=== PATIENT | male | born 1945 | race Caucasian/White ===

== ENCOUNTER 2016-04-08 12:32 | Observation (INO) | payer OTHER ==
[2016-04-08] VITALS (8 sets, daily range): BP systolic 130–167; BP diastolic 71–95; PULSE 66–78; RESP 10–20; O2SAT 97–100
[~2016-04-08] VITALS: Ht 182.9 cm; Wt 77.6 kg
[2016-04-08] MEDS ORDERED: 0.9% Sodium Chloride 1,000 ML IV ONE (12:58)
--- NOTE | 2016-04-08 12:58 | ED.REPORT ---
HPI-GI Bleed Date of Service Apr 08, 2016 ED Provider: Daniel Perry MD 70 year old male with HTN presents to the ER accompanied by his complaining of vomiting "coffee grounds" yesterday around 20:00. He reports only one episode of projectile vomiting, and one episode of black diarrhea this morning. Associated symptoms include abdominal discomfort, and dizziness/ lightheadedness last night, now resolved. Patient denies fever, chills, and history of gastric ulcer or GI bleeding. He admits that he had three beers last night. Nursing Notes Stated Complaint: BLOOD IN STOOL AND VOMIT Chief Complaint: Male Abdominal Pain Nursing Notes Reviewed: Yes Allergies: Coded Allergies: No Known Allergies (Unverified , 04/08/16) General Time Seen by Provider: 12:56 Chief Complaint Chief Complaint: Stool tarry black, Vomiting coffee grounds Hx Obtained From: Patient Arrived By: Walk-in Onset Occurred: Yesterday Symptom Duration: Intermittent Associated with: Reports: Diarrhea, Denies: Fever Pertinent Negative: Pt denies other symptoms Past Medical History Past Medical History Reports: Hypertension Past Surgical History Reports: Knee replacement (bilateral) Smoking History Unknown if Ever Smoker Social History Other Social History: Good social support, Lives alone Ambulatory Status Independent Review of Systems Constitutional: Denies: Chills, Fever Respiratory: Denies: Shortness of breath Cardiovascular: Denies: Chest pain GI: Reports: Abdominal pain, Bloody/tarry stool, Diarrhea, Hematemesis (Coffee grounds), Melena, Nausea, Vomiting, Denies: Constipation Complete sys rev & neg: except as marked. Male: Denies Dysuria, Denies Flank pain, Denies Hematuria Physical Exam Initial Vital Signs Vital Signs (First) Date Time Temp Pulse Resp B/P Pulse Ox O2 Delivery O2 Flow Rate FiO2 04/08/16 12:36 36.3 75 10 167/95 100 Room Air Initial VS: Reviewed Head / Eyes: Atraumatic, Normocephalic Neck: Supple, Non-tender, Full range of motion Extremities: Vascular intact, Neuro intact, No swelling, No tenderness Skin: Warm, Dry, No cyanosis Neurologic: Alert, Oriented, Nonfocal Psychiatric: Mood/affect normal, Behavior normal, Normal thought content General/Constitutional: Awake, Alert, No acute distress, Well developed, Well nourished Respiratory / Chest: Breath sounds NL, Breath sounds = bilat, No respiratory distress, No rales, No rhonchi, No wheezing Cardiovascular: Heart rate NL, Regular rhythm, Heart sounds NL, No murmurs, Cap refill not delayed, Peripheral circulation NL Abdomen: Soft, No guarding, No rebound, No distention Tenderness/Guarding/Rebound: Positive: Tender epigastric Rectal for Blood: Positive: Blood - occult heme +, Melena present Rectum / Perineum Abnl: Positive: Hemorrhoid external Interpretation & Diagnostics Lab Results Interpretation Result Diagram: 04/08/16 1319 04/08/16 1319 Test 04/08/16 13:19 White Blood Count 9.2th/mm3 (3.8-10.1) Red Blood Count 4.33mil/mm3 (4.40-5.80) Hemoglobin 13.2g/dL (13.8-17.2) Hematocrit 40.3% (41.0-50.0) Mean Corpuscular Volume 93.1fL (81-100) Mean Corpuscular Hemoglobin 30.5pg (27.0-35.0) Mean Corpuscular Hemoglobin Concent 32.8% (32.0-37.0) Red Cell Distribution Width 12.7% (12.3-15.4) Platelet Count 329bil/L (150-400) Neutrophils (%) (Auto) 74.9% (40-74) Lymphocytes (%) (Auto) 13.9% (14-46) Monocytes (%) (Auto) 10.1% (4-12) Eosinophils (%) (Auto) 0.4% (0-5) Basophils (%) (Auto) 0.5% (0-3) Prothrombin Time 11.2sec (8.1-12.5) Prothromb Time International Ratio 1.05ratio Sodium Level 139mEq/L (134-144) Potassium Level 4.0mEq/L (3.5-5.2) Chloride Level 101mEq/L (97-108) Carbon Dioxide Level 24mmol/L (18-29) Blood Urea Nitrogen 30mg/dL (8-27) Creatinine 0.83mg/dL (0.76-1.27) Estimat Glomerular Filtration Rate 98mL/min (>59) Glucose Level 94mg/dL (60-99) Calcium Level 8.6mg/dL (8.5-10.1) Total Bilirubin 0.5mg/dL (0.0-1.2) Aspartate Amino Transf (AST/SGOT) 18U/L (0-50) Alanine Aminotransferase (ALT/SGPT) 11U/L (0-44) Alkaline Phosphatase 75U/L (25-160) Total Protein 6.4g/dL (6.4-8.4) Albumin 4.1g/dL (3.4-5.0) Re-Eval/Medical Decision Med Decision/Clinical Course The patient is a 70-year-old male with a history of heavy drinking who presents emergency Department with 1 episode of coffee-ground emesis as well as melanotic stools for the last 24 hours. Upon arrival he is afebrile and hemodynamically stable. Abdominal examination reveals epigastric tenderness without any peritoneal findings, guarding or rigidity. Rectal examination reveals melena. 2 large-bore IVs were obtained and the patient was started on a pantoprazole bolus and infusion. Presentation was discussed with Dr. Roman who will consult on this patient and perform endoscopy in the morning. He remained hemodynamically stable. CBC revealed a hematocrit of 40 and CMP was notable for BUN of 30, otherwise unremarkable. At this time there are no findings consistent with an acute surgical intra-abdominal process and I do not feel that abdominal imaging is immediately indicated. He admits he has been taking aspirin for the last couple of days so otherwise does not take any nonsteroidal anti-inflammatory medications. He has no history of GI bleeding, esophageal varices or gastric ulcers. I suspect that his GI bleed is upper in nature and likely related to gastritis or peptic ulcer disease. Patient was admitted to the critical care unit due to the acute nature of his bleeding and large volume of bloody emesis. Patient was transferred in stable condition with good IV access and GI consulting. Source of Hx: Old records Re-Evaluation/Progress : Time of Eval: 13:06 Re-Evaluation/Progress Note: Discussed physical examination findings and need for admission. Patient is amenable to the plan. All other questions addressed. Consultation #1: Referral / Consult Name: Vern Quintana MD Consulted With: On-call physician (GI) Call Returned at: 13:29 Area Plant Manager: Will see patient Note: Discussed patient case with Dr. Quintana GI. Will scope patient in the morning. Consultation #2: Consulted With: Hospitalist Area Plant Manager: Agrees with eval, Agrees with plan, Accepts admit Counseled Regarding: Diagnosis, Lab results, Need for admission Discharge & Departure Impression: Primary Impression: Upper GI bleed Additional Impressions: Hematemesis Nausea presence: unspecified Qualified Code: K92.0 - Hematemesis Melena Alcohol abuse Disposition: ADMITTED TO HOSPITAL Discharge Condition All VS Reviewed: Yes Condition: Stable Crit Care Except Billable Proc Time Spent: 105-134 minutes Services Performed: Patient management by me, Time spent at bedside, Reviewing test results, Reviewing imaging, Discussing patient care, Documentation in record, Time with fam/surrogate Scribe Attestation Portions of this note were transcribed by Antolin Christensen. I, Dr. Perry, personally performed the history, physical exam and medical decision-making; I reviewed and confirmed the accuracy of the information in the transcribed note. Signed by: Elham Rosas, 04/08/2016 and 14:19 Daniel Perry MD Apr 08, 2016 12:58 ANTOLIN CHRISTENSEN Apr 08, 2016 13:09
[2016-04-08] MEDS ORDERED: Pantoprazole 4 mg/mL 10 mL Inj IVPUSH ONE (13:00)
[2016-04-08] MEDS ORDERED: Ondansetron 2 mg/mL 2 mL Inj IVPUSH PRN ×2 (13:15→14:40)
[2016-04-08] MEDS ORDERED: Alum-Mag Hydrox-Simeth 30 mL Suspension PO PRN ×2 (13:15→14:40)
[2016-04-08] MEDS ORDERED: Pantoprazole Inj 80 MG, Pharmacy To Mix 1 EA in 0.9% Sodium Chloride 80 ML IV ONE ×2 (13:15)
[2016-04-08 13:27] LABS: BASOPHILS % (AUTO) 0.5 % (0-3); EOSINOPHILS % (AUTO) 0.4 % (0-5); MONOCYTES % (AUTO) 10.1 % (4-12); Mean Corpuscular Hemoglobin 30.5 pg (27.0-35.0); Mean Corpuscular Volume 93.1 fL (81-100); NEUTROPHILS % (AUTO) 74.9 % (40-74); Platelet Count 329 bil/L (150-400)
[2016-04-08 13:46] LABS: INR 1.05 ratio
[2016-04-08] MEDS ORDERED: fentaNYL-PF 50 mCg/mL 2 mL Inj IV PRN (14:40)
--- NOTE | 2016-04-08 14:51 | PCM.HPMED ---
Subjective Date of Service Apr 08, 2016 Primary Provider: Admitting Physician: Primary Care Physician: [facility] Attending Physician: Admit Status: From the Emergency Department, Full Admit, [facility] Telemetry Chief Complaint: Vomiting black material along with black diarrhea today History of Present Illness: This is a 70-year-old male whose past medical history is significant for hypertension however he has not been taking his blood pressure pills over the past several months and says he checks his blood pressures and it is not elevated. He does note over the past 3 days he has taken one aspirin daily. He had a mild headache. He does drink alcohol about 3-4 beers every 3-4 days. Patient does note that his appetite had been a little bit poor over the past few days. He does currently note some mild epigastric discomfort. He notes no prior history of GI bleeding. He has felt a little bit lightheaded particularly after the episode of vomiting which occurred once. He also had 1 loose stool today. Both were black in color. He denies any chest pain or shortness of breath. His evaluation in the emergency room includes an admission hematocrit at 40.3. He does have normal liver enzymes. Dr. Quintana was notified by JANINE Pearson and plan suspect the patient tomorrow. Patient was given Protonix was IV and started on IV Protonix drip 8 mg per hour in the emergency room. Review of Systems: All other review of systems are reviewed and are negative except for as in history of present illness Allergies Coded Allergies: No Known Allergies (Unverified , 04/08/16) Home Medications None currently per patient Patient previously had been on lisinopril and hydrochlorothiazide for his hypertension. [facility] Past Medical History Reports: Hypertension Past Surgical History Reports: Knee replacement (bilateral) His knee replacements one was done in January 2015 and the next one was done May 2015 at [facility]. Family History Patient denies any family medical history of cancer or coronary artery disease Social History Hx Alcohol Use: Yes (3-4 beers every 3-4 days) Hx Substance Use: No Hx Tobacco Use: No Smoking Status: Former Smoker (quit 20 years ago), Unknown if Ever Smoker Living Arrangement: with Family Exam Vital Signs Vital Sign - Last Date Time Temp Pulse Resp B/P Pulse Ox O2 Delivery O2 Flow Rate FiO2 04/08/16 12:36 36.3 75 10 167/95 100 Room Air Exam Constitutional: Elderly man in no acute distress Head: Normocephalic atraumatic Eyes: PERRLA DC EOMI Neck: No lesions Mouth: Poor dentition Chest: Clear to auscultation Cor: Regular rate and rhythm S1-S2 Abdomen: Soft there is some tenderness in the epigastrium no rebound no guarding bowel sounds are present extremities: No pedal edema Skin: No rashes Psych: Mood and affect are appropriate Neuro: Alert and oriented 3, motor and sensory are intact bilaterally Lab and Diagnostics Labs Laboratory Tests 72 Hours Test 04/08/16 13:19 White Blood Count 9.2th/mm3 (3.8-10.1) Red Blood Count 4.33mil/mm3 (4.40-5.80) Hemoglobin 13.2g/dL (13.8-17.2) Hematocrit 40.3% (41.0-50.0) Mean Corpuscular Volume 93.1fL (81-100) Mean Corpuscular Hemoglobin 30.5pg (27.0-35.0) Mean Corpuscular Hemoglobin Concent 32.8% (32.0-37.0) Red Cell Distribution Width 12.7% (12.3-15.4) Platelet Count 329bil/L (150-400) Neutrophils (%) (Auto) 74.9% (40-74) Lymphocytes (%) (Auto) 13.9% (14-46) Monocytes (%) (Auto) 10.1% (4-12) Eosinophils (%) (Auto) 0.4% (0-5) Basophils (%) (Auto) 0.5% (0-3) Prothrombin Time 11.2sec (8.1-12.5) Prothromb Time International Ratio 1.05ratio Sodium Level 139mEq/L (134-144) Potassium Level 4.0mEq/L (3.5-5.2) Chloride Level 101mEq/L (97-108) Carbon Dioxide Level 24mmol/L (18-29) Blood Urea Nitrogen 30mg/dL (8-27) Creatinine 0.83mg/dL (0.76-1.27) Estimat Glomerular Filtration Rate 98mL/min (>59) Glucose Level 94mg/dL (60-99) Calcium Level 8.6mg/dL (8.5-10.1) Total Bilirubin 0.5mg/dL (0.0-1.2) Aspartate Amino Transf (AST/SGOT) 18U/L (0-50) Alanine Aminotransferase (ALT/SGPT) 11U/L (0-44) Alkaline Phosphatase 75U/L (25-160) Total Protein 6.4g/dL (6.4-8.4) Albumin 4.1g/dL (3.4-5.0) Result Diagram: 04/08/16 1319 04/08/16 1319 12-lead ECG Pending at the time of this dictation Assessment & Plan # Upper GI bleed, acute, present on admission Due to amount of melena and first hematocrit looked okay we will go ahead and place an PCC telemetry check serial hematocrits Type and cross PRBCs Continue with IV Protonix drip Nothing by mouth GI to see tomorrow for EGD 2 large bore IVs Check EKG and troponins to rule out any cardiac ischemia # History of hypertension, chronic, present on admission Patient is off of his antihypertensive I think by his own volition over the past few months We will need to monitor blood pressure here # History of EtOH use, chronic, present on admission Monitor for signs and symptoms of alcohol withdrawal # DVT prophylaxis We will not use subcutaneous anticoagulation due to GI bleed but will place on SCDs # CODE STATUS Full code Time spent 60 minutes Renée Dunn MD Apr 08, 2016 14:51
[2016-04-08] MEDS ORDERED: SODIUM CHLORIDE 0.9% IV SCH (15:00)
[2016-04-08] MEDS ORDERED: PANTOPRAZOLE IV SCH (15:00)
--- NOTE | 2016-04-08 15:30 | NUR ---
To [facility] rm 2023 from E.R. Admission completed/pt reports he takes "no medications". A&Ox3, no evidence of upper or lower bleed or emesis or melena.
--- NOTE | 2016-04-08 18:00 | NUR ---
Postural BPs Lying flat: 158/80, HR 76. Standin/86, HR 78. Denies lightheadedness or dizziness.
--- NOTE | 2016-04-08 19:00 | NUR ---
Stable; next H/H pending/avail PRBC x1 unit/ No signs/sx of emesis or rectal bleeding. Up in room, steady on feet.
[2016-04-08] MEDS: 0.9% Sodium Chloride 1,000 ML IV SCH ×2 (19:18→22:40)
[2016-04-08] MEDS: Pantoprazole 8 mg/Hr Infusion IV SCH ×2 (19:19)
[2016-04-08 19:54] LABS: APPEARANCE,URINE CLEAR (CLEAR,HAZY); COLOR,URINE YELLOW (YELLOW); OCCULT BLOOD,URINE TRACE (NEGATIVE); PH,URINE 5.5 (5.0-8.0); UROBILINOGEN,URINE NORMAL (NORMAL)
[2016-04-09] VITALS (9 sets, daily range): BP systolic 113–167; BP diastolic 60–87; PULSE 59–70; RESP 16–20; O2SAT 95–99
[2016-04-09] MEDS: Pantoprazole 8 mg/Hr Infusion IV SCH ×4 (00:37→11:01)
[2016-04-09 02:36] LABS: EOSINOPHILS % (AUTO) 1.7 % (0-5); MONOCYTES % (AUTO) 12.3 % (4-12); Mean Corpuscular Hemoglobin 30.6 pg (27.0-35.0); Mean Corpuscular Volume 94.3 fL (81-100); NEUTROPHILS % (AUTO) 53.4 % (40-74); Platelet Count 257 bil/L (150-400)
[2016-04-09] MEDS: 0.9% Sodium Chloride 1,000 ML IV SCH (03:37)
--- NOTE | 2016-04-09 11:36 | NUR ---
Spoke with Anais at [facility] in [place], patient is 60% service connected PNT. Patient holds no other insurance and there are no beds available today. Updated ROTOR BALANCER
[2016-04-09] MEDS ORDERED: Lactated Ringer's 1,000 ML IV ONE (14:31)
[2016-04-09] MEDS ORDERED: Lactated Ringer's 1,000 ML IV SCH (14:31)
[2016-04-09] MEDS ORDERED: MetoCLOpramide 5 mg/mL 2 mL Inj IVPUSH PRN (14:35)
[2016-04-09] MEDS ORDERED: Ondansetron 2 mg/mL 2 mL Inj IVPUSH PRN (14:35)
--- NOTE | 2016-04-09 14:53 | NUR ---
Off Unit Patient off unit to Endoscopy for procedure.
--- NOTE | 2016-04-09 15:04 | PCM.HPANE ---
Patient Data Date of Service: Apr 09, 2016 Surgeon Admitting Provider:Renée Dunn MD Attending Provider:Renée Dunn MD [facility] Other Provider: Reason for Visit Upper Gi Ht/WT & BMI Height (Feet): 6 Height (Inches): 0.00 Weight (Kilograms): 77.600 Body Mass Index 0.00 Allergies Coded Allergies: No Known Allergies (Unverified , 04/08/16) Diabetes History Hx Diabetes?: No MRSA MRSA: No Medications Home Meds Incl Beta Diana: No History History of ENT Problems?: No HEENT History: Denies:: Dysphagia Hx of Heart Problems?: Yes Cardiovascular History: Positive for:: Heart Murmur Denies:: Cardiac Surgery Chest Pain Congestive Heart Failure Edema Hypertension Irregular Heartbeat Pacemaker Thrombophlebitis Hx of Respiratory Problem?: No Respiratory History: Denies:: Tuberculosis Neurological History: Positive for:: Headaches (just last few days) Hx of GI Problems?: No Gastrointestinal History: Positive for:: Gastrointestinal Bleeding (this admit is first GI problem) Genitourinary History: Denies:: Kidney Stones Musculoskeletal History: Positive for:: Joint Replacement (Bilateral knee replacements) Denies:: Back Injury Hx of Psycho/Social Problems?: No Psycho Social History: Denies:: Anxiety Bipolar Disorder Hx Depression Suicide Attempt Hx Surgeries?: No Other History: Positive for:: Hospitalization (Just for knee surgeries) Denies:: Thyroid Disease History Blood Transfusions: Positive for:: Accept Blood Products? Blood Transfusions Denies:: Blood Transfuse Reaction Hx Diabetes: No Hx Alcohol Use: Yes (3-4 beers every 3-4 days)Alcoholic Drinks Per Day: 0-3Hx Substance Use: No Smoking Status: Former Smoker (quit 20 years ago) Unknown if Ever Smoker Have You Smoked inLast 12 mo: No Stop/Bang Treated for Sleep Apnea?: No Do You Have a CPAP Machine?: No S-Snoring: Do You Snore Loudly: No T-Tired: feel tired, fatigued: No O-Obsered: Observed not breath: No P-Blood Pressure: treated: No B- Body Mass Index > 35 kg/m2: No A- Age over 50: Yes N- Neck Large Circumference: No G- Gender Male: Yes NAFISA Total Score: 1 NAFISA Risk Assessment: Low Risk, <3 Yes Risk Assessment Category Category 1A: Patient has history of documented sleep apnea, and HAS NOT received any narcotic, sedative or anesthesia administration during this stay. Category 1B: Patient has history of documented sleep apnea, and HAS received any narcotic , sedative or anesthesia administration during this stay Category 2: Patient has SUSPECTED Obstructive Sleep Apnea, and HAS received any narcotic , sedative or anesthesia administration during this stay. Category 3: Patient has SUSPECTED Obstructive Sleep Apnea and HAS NOT received narcotic, sedative or anesthesia administration during this stay. Category 4: Outpatient in Procedural Areas with known sleep apnea or who screen positive for High Risk via the STOP/BANG questionnaire. Exam Exam Vital Signs Vital Signs Date Time Temp Pulse Resp B/P Pulse Ox O2 Delivery O2 Flow Rate FiO2 04/09/16 13:08 67 04/09/16 11:59 36.7 70 16 149/87 98 Room Air 04/09/16 08:31 36.7 68 16 167/85 99 Room Air General Appearance: Alert, Oriented X3, Cooperative, No Acute Distress HEENT/AIRWAY: MP 1 Lungs: Normal Air Movement Heart: Exam Unremarkable Meds/Labs/Diagnostics Admission Meds Current Medications Sodium Chloride 1,000 ml @ 125 mls/hr Q8H IV Last administered on 04/09/16 03 :37; Start 04/08/16 at 14:40 Pantoprazole/ Sodium Chloride (Protonix Inj/ Normal Saline) 100 ml @ 10 mls/hr Q10H IV Last administered on 04/09/16 11:01; Start 04/08/16 at 15:15 Labs Test 04/08/16 13:19 04/08/16 18:45 04/09/16 02:07 Prothrombin Time 11.2sec (8.1-12.5) Prothromb Time International Ratio 1.05ratio Urine Color Yellow (YELLOW) Urine Appearance Clear (CLEAR,HAZY) Urine pH 5.5 (5.0-8.0) Urine Specific [place] 1.030 (1.003-1.035) Urine Protein Negativemg/dL (NEG,TRACE) Urine Glucose (UA) Negativemg/dL (NEGATIVE) Urine Ketones 15mg/dL (NEGATIVE) Urine Occult Blood Trace (NEGATIVE) Urine Nitrite Negative (NEGATIVE) Urine Bilirubin Negative (NEGATIVE) Urine Urobilinogen Normalmg/dL (NORMAL) Urine Leukocyte Esterase Negative (NEGATIVE) Urine RBC 0-2/hpf (0-2) Urine WBC 0-5/hpf (0-5) Urine Epithelial Cells None/hpf (NONE-MOD) Urine Crystals None seen (NONE SEEN) Urine Bacteria None/hpf (NONE-FEW) Urine Hyaline Casts None/lpf (NONE) Urine Granular Casts None seen (NONE SEEN) Urine Waxy Casts None seen (NONE SEEN) Urine Red Blood Cell Casts None seen (NONE SEEN) Urine White Blood Cell Casts None seen (NONE SEEN) Urine Mucus None seen (None Seen) Urine Trichomonas None seen (NONE SEEN) Urine Yeast None (NONE SEEN) Urinalysis Comment None Urine Culture Reflexed Not indicated White Blood Count 5.9th/mm3 (3.8-10.1) Red Blood Count 3.50mil/mm3 (4.40-5.80) Hemoglobin 10.7g/dL (13.8-17.2) Hematocrit 33.0% (41.0-50.0) Mean Corpuscular Volume 94.3fL (81-100) Mean Corpuscular Hemoglobin 30.6pg (27.0-35.0) Mean Corpuscular Hemoglobin Concent 32.4% (32.0-37.0) Red Cell Distribution Width 12.6% (12.3-15.4) Platelet Count 257bil/L (150-400) Neutrophils (%) (Auto) 53.4% (40-74) Lymphocytes (%) (Auto) 31.3% (14-46) Monocytes (%) (Auto) 12.3% (4-12) Eosinophils (%) (Auto) 1.7% (0-5) Basophils (%) (Auto) 1.0% (0-3) Sodium Level 141mEq/L (134-144) Potassium Level 3.9mEq/L (3.5-5.2) Chloride Level 107mEq/L (97-108) Carbon Dioxide Level 24mmol/L (18-29) Blood Urea Nitrogen 21mg/dL (8-27) Creatinine 0.92mg/dL (0.76-1.27) Estimat Glomerular Filtration Rate 87mL/min (>59) Glucose Level 86mg/dL (60-99) Calcium Level 8.1mg/dL (8.5-10.1) Total Bilirubin 0.5mg/dL (0.0-1.2) Aspartate Amino Transf (AST/SGOT) 13U/L (0-50) Alanine Aminotransferase (ALT/SGPT) 10U/L (0-44) Alkaline Phosphatase 58U/L (25-160) Troponin T 0.010ug/L (0.0-0.011) Total Protein 4.9g/dL (6.4-8.4) Albumin 3.4g/dL (3.4-5.0) Plan Impression Patient chart reviewed, patient interviewed and anesthestic plan with risks, benefits, and alternatives discussed, and informed consent obtained. ASA Physical Status: ASA2 Mod Systemic Disease Anesthetic Plan: MAC Bene/Risks/Altern/Consents: Yes HP Complete Prior to Induction: Yes Chapincito Enriquez MD Apr 09, 2016 14:30
--- NOTE | 2016-04-09 16:08 | PCM.ANEP1 ---
Post Anesthesia Phase 1 PACU Phase 1 Assessment Date of Service: Apr 09, 2016 Vital Signs Vital Signs Date Time Temp Pulse Resp B/P Pulse Ox O2 Delivery O2 Flow Rate FiO2 04/09/16 16:05 67 16 115/60 97 Room Air 04/09/16 14:46 36.7 64 154/87 98 Room Air 04/09/16 13:08 67 04/09/16 11:59 36.7 70 16 149/87 98 Room Air 04/09/16 08:31 36.7 68 16 167/85 99 Room Air Anesthetic Administered: MAC Level of Alertness: Awake, talking FRANCOIS's with Equal Strength: Yes Pain: No Nausea or Vomiting: No Oxygen Delivery: Room Air Lungs: Normal Air Movement Chapincito Enriquez MD Apr 09, 2016 16:08
--- NOTE | 2016-04-09 16:09 | PCM.ANEP2 ---
Post Anesthesia Evaluation ASA/CMS Post Anesthesia Date of Service: Apr 09, 2016 VS in Patient's Normal Range?: Yes Resp Stable; Airway Patent?: Yes CV Function & Hydration Stable: Yes Mental Status Recovered?: Yes Pain control Satisfactory?: Yes N/V Control Satisfactory?: Yes Chapincito Enriquez MD Apr 09, 2016 16:09
--- NOTE | 2016-04-09 16:35 | NUR ---
Return to unit Patient arrived back to room 2023 via WC. Patient A&Ox3, denying pain, VSS. Patient in bed visiting with . Call light within patient reach.
[2016-04-09] MEDS ORDERED: AMOX500T2 PO (17:47)
[2016-04-09] MEDS ORDERED: CLAR500T PO (17:47)
[2016-04-09] MEDS ORDERED: PANT40TA3 PO (17:47)
--- NOTE | 2016-04-09 18:02 | PCM.DIMED ---
Matilda Quintanilla DO 04/09/16 1802: Discharge Instructions Date of Service Apr 09, 2016 Dates of Hospitalization Apr 08, 2016 at 14:59 Discharge Diagnosis Discharge Diagnosis 1. Upper GI bleed 2. Hypertension 3. ETOH use Diet Heart Healthy Activity Limited until seen by PCP Call your provider Fever or Chills, Shortness of breath, Bleeding, Chest pain, Vomitting (blood or coffee grounds), Excessive diarrhea, Weakness (unilateral) Patient Instructions For the stomach ulcers, please start a triple therapy. Take clarithromycin 500 mg twice per day for 10 days and amoxicillin 1000 mg twice per day for 10 days. Also, take pantoprazole 40 mg twice per day for 14 days. You will then continue pantoprazole 40 mg twice per day for 1 day per week for 4 more weeks. In summary, take pantoprazole twice per day for 2 weeks, and then one day per week for 4 additional weeks, which is a total of 6 weeks of pantoprazole. After 6 weeks, only take pantoprazole when you take non- steroidal anti-inflammatories, such as aspirin or ibuprofen. Do not take aspirin or ibuprofen during the first 6 weeks after leaving the hospital today. Limit your alcohol use. After you have completed 4 weeks of therapy, you will need an H. pylori breath test to confirm that the bacteria have successfully been treated. For your high blood pressure, limit your alcohol use and avoid prepackaged and high salt foods. You can also try [id number] magnesium supplements and/ or hibiscus tea. Follow-up with your primary care provider within one week. Follow-up Provider: [place] Follow-up with PCP in: 1 week Adria Hernandez MD 04/11/16 0952: Discharge Instructions Attending's Statement The patient was seen and examined together with Dr. Quintanilla on 04/09/2016 and I agree with the history, exam and plan as outlined in the note above. . Matilda Quintanilla DO Apr 09, 2016 18:02 Adria Hernandez MD Apr 11, 2016 09:52
[2016-04-09] MEDS ORDERED: fentaNYL-PF 50 mCg/mL 2 mL Inj ONE (18:33)
[2016-04-09] MEDS ORDERED: Propofol 10,000 mCg/mL 20 mL Inj ONE (18:33)
--- NOTE | 2016-04-09 18:35 | NUR ---
Discharge Patient has had no further episodes vomiting or diarrhea. Denies pain. VSS. Discharge instructions and paper rx printed and reviewed verbally with patient and . All questions answered. IV DC'd intact. Patient ambulated off unit with all personal belongings and discharged home accompanied by via personal vehicle.
--- NOTE | 2016-04-09 22:29 | CONS ---
[address] [address] CONSULTATION REPORT PATIENT: CHAPO QUACH : 1945 MR#: [id number] ADMIT: 04/08/2016 JOB ID: [id number] DATE OF SERVICE: 04/09/2016 REQUESTING PROVIDER: Daniel Perry MD. REASON FOR CONSULTATION: Upper GI bleeding. HISTORY OF PRESENT ILLNESS: This is a 70-year-old male without any prior GI history, who had been experiencing symptoms of headache over the last week and was using daily doses of aspirin 5-6 times a day. Starting a couple of nights ago he started to feel poorly. He has lost a little bit of weight this week after feeling a little full rather easily. He then started to have symptoms of abdominal cramping, discomfort and ultimately hematemesis of coffee-ground emesis. He then produced a dark stool. He has had neither of those symptoms today. Hemoglobin and hematocrit were acceptably stable. The patient had been commenced on proton pump inhibitor infusion here in the hospital. ALLERGIES: No known drug allergies. MEDICATIONS: Aspirin as described above. PAST MEDICAL HISTORY: 1. Hypertension. 2. Prior knee replacement. PAST FAMILY HISTORY: Noncontributory. SOCIAL HISTORY: The patient's significant other was at the bedside. He is an ex-smoker. He takes a 3-4 beers every 3-4 days. REVIEW OF SYSTEMS: Apart from his GI symptoms, review is negative. He has been afebrile here in the hospital. No cardiopulmonary complaints. PHYSICAL EXAMINATION: Blood pressure is 113/62, pulse 65, breathing 16, temperature 36.7; 97% on room air. The patient was in no distress. Alert, oriented, appropriate, cooperative, conversational. Skin: Warm and dry. Sclerae anicteric. Lungs: Clear bilaterally. Good respiratory effort. Heart: Regular. No significant peripheral pitting edema. Abdomen is soft. Bowel sounds present. No tenderness appreciated. LABORATORIES: Hemoglobin dropped from 13.2 on admission down to 10.7 today. Hematocrit 33.0, platelets 257, white count normal 5.9. Comprehensive metabolic panel is unremarkable. Bilirubin was normal. Creatinine 0.92. INR 1.05. Urinalysis unremarkable. PLAN AND ASSESSMENT: A 70-year-old male with subacute low-grade upper gastrointestinal bleeding in the face of nonsteroidal anti-inflammatory medication. Peptic ulceration is suspected. Esophagogastroduodenoscopy was discussed. The risks of the procedure reviewed. The patient wished to proceed. Please see the EGD note for further details.
--- NOTE | 2016-04-10 00:33 | ENDO ---
[address] [address] ENDOSCOPY PROCEDURE PATIENT: CHAPO QUACH : 1945 MR#: [id number] ADMIT: 04/08/2016 JOB ID: [id number] DATE OF PROCEDURE: 04/09/2016 PROCEDURE: Esophagogastroduodenoscopy with biopsy. INDICATIONS: A 70-year-old male with subacute upper GI bleeding. EQUIPMENT: [id number]. SEDATION: Monitored anesthesia as provided by Dr. Chapincito Enriquez. COMPLICATIONS: None identified. PROCEDURE INFORMATION: After the risks and benefits were explained, written and verbal informed consent was obtained. The patient was brought into the endoscopy suite and placed into the left lateral decubitus position. Because of the patient's regular, but certainly not abusive, alcohol use, anesthesia was requested to assist with sedation. This was accomplished. The scope was then introduced into the mouth through the bite block and advanced to the second portion of the duodenum. The scope was slowly withdrawn to carefully examine the mucosa for any defects or lesions. Retroflexed views were accomplished in the stomach. The stomach was decompressed. The scope was removed from the patient who tolerated the procedure well. FINDINGS: 1. Esophagus: The squamocolumnar junction correlated with the top of the gastric folds. The GE junction was at 46 cm from the incisors. No acute erosive changes. No strictures. No mass lesions. 2. Stomach: The patient had a minimal amount of nonspecific gastropathy. Retroflexed views of the LES were unremarkable. There was, however, multifocal essentially bland-based ulcerations throughout the antrum and prepyloric region. No outlet obstruction. No high risk stigmata. Certainly, no evidence of any ongoing bleeding. A small biopsy was taken for exclusion of Helicobacter pylori infection. 3. Duodenum: The patient had some patchy erosive changes in the duodenal bulb. No large ulcers. No mass lesions. No ongoing bleeding. All of this also appeared consistent with NSAID induced injury. ENDOSCOPIC DIAGNOSES: 1. Multifocal gastric peptic ulcer disease. 2. Duodenal erosions. 3. Helicobacter pylori results: As of the time of this dictation I was informed that the PyloriTek assay turned positive. RECOMMENDATIONS: 1. I would recommend amoxicillin 1 g twice daily for 10 days, clarithromycin 500 mg twice daily for 10 days, and Protonix 40 mg twice daily for 14 days. 2. I would then recommend he go one PPI once daily for seven more days and then taper off of the therapy entirely. 3. The patient should continue PPI if he in the future needs to be using NSAIDs on a more regular basis. 4. After the patient has been off PPI x4 weeks, I have recommended he have an H. pylori breath test. These results were communicated with the patient's medical team prior to discharge.
[2016-04-10] MEDS ORDERED: Pantoprazole 40 mg ER24 Tablet PO SCH (07:30)
--- NOTE | 2016-04-10 18:58 | PCM.DC.MED ---
Discharge Summary Date of Service Apr 09, 2016 Dates of Hospitalization Date of Hospital Admission Apr 08, 2016 at 14:59 Date of Discharge: Apr 09, 2016 Providers: Admitting Physician: Renée Dunn MD [facility]ending Physician: Renée Dunn MD Diagnosis at Time of Discharge Diagnosis at Time of Discharge 1. Upper GI bleed 2. Hypertension 3. ETOH use Brief History From the history and physical performed by Dr. Renée Dunn on 04/08/2016: This is a 70-year-old male whose past medical history is significant for hypertension however he has not been taking his blood pressure pills over the past several months and says he checks his blood pressures and it is not elevated. He does note over the past 3 days he has taken one aspirin daily. He had a mild headache. He does drink alcohol about 3-4 beers every 3-4 days. Patient does note that his appetite had been a little bit poor over the past few days. He does currently note some mild epigastric discomfort. He notes no prior history of GI bleeding. He has felt a little bit lightheaded particularly after the episode of vomiting which occurred once. He also had 1 loose stool today. Both were black in color. He denies any chest pain or shortness of breath. His evaluation in the emergency room includes an admission hematocrit at 40.3. He does have normal liver enzymes. Dr. Quintana was notified by JANINE Pearson and plan suspect the patient tomorrow. Patient was given Protonix was IV and started on IV Protonix drip 8 mg per hour in the emergency room. Hospital Course 1. Upper gastrointestinal bleed, acute, present on admission. -Esophagogastroduodenoscopy showed multifocal gastric peptic ulcer disease, duodenal erosions, and positive H. pylori. -Hemoglobin and hematocrit were stable, Typed and crossed PRBCs, but patient did not need a transfusion. -Given IV Protonix drip -Troponin negative 2. History of hypertension, chronic, present on admission -Patient has not been taking his antihypertensive medications because he does not want to take medication. -Intermittently hypertensive while in the hospital. -Discussed dietary and [id number] treatments with the patient if he does not want to take prescription medications for his high blood pressure. Discussed the importance of blood pressure control. 3. History of EtOH use, chronic, present on admission -No signs of alcohol withdrawal while in the hospital. -Discussed with patient the importance of decreased alcohol for blood pressure control and for healing of peptic ulcers. Exam Vital Signs (Last) Date Time Temp Pulse Resp B/P Pulse Ox O2 Delivery O2 Flow Rate FiO2 04/09/16 16:36 36.8 143/71 99 Room Air 04/09/16 16:20 59 16 Exam General: No acute distress, well-developed, well-nourished, appropriately interactive HEENT: Normocephalic, atraumatic. External ears without defect. Pupils equal, round, and reactive to light and accommodation. Anicteric sclerae, moist conjunctivae, and no lid lag. Oropharynx free of erythema and cobble stoning with moist mucosa. Neck: Supple with full range of motion. No jugular venous distension. No bruits. No lymphadenopathy or thyromegaly. Cardiovascular: Regular rate and rhythm with no murmurs, rubs, or gallops appreciated Pulmonary: Clear to auscultation bilaterally with no crackles, wheezes, or rhonchi. Normal respiratory effort with no use of accessory muscles. Abdomen: Diffusely tender. Bowel tones present. Soft, nondistended. No hepatosplenomegaly or masses appreciated. Extremities: No clubbing, cyanosis, edema, or lymphadenopathy appreciated. Skin: Normal temperature, turgor, and texture; no rash, ulcers, or subcutaneous nodules appreciated. Neurological: Cranial nerves grossly intact. Normal muscle strength, tone, and bulk. Reflexes, coordination, and sensory function within normal limits. No known gait impairment. Psychiatric: Normal mood and affect. Alert and oriented to person, place, and time. Test 04/08/16 13:19 04/08/16 18:45 04/09/16 02:07 Prothrombin Time 11.2sec (8.1-12.5) Prothromb Time International Ratio 1.05ratio Urine Color Yellow (YELLOW) Urine Appearance Clear (CLEAR,HAZY) Urine pH 5.5 (5.0-8.0) Urine Specific [place] 1.030 (1.003-1.035) Urine Protein Negativemg/dL (NEG,TRACE) Urine Glucose (UA) Negativemg/dL (NEGATIVE) Urine Ketones 15mg/dL (NEGATIVE) Urine Occult Blood Trace (NEGATIVE) Urine Nitrite Negative (NEGATIVE) Urine Bilirubin Negative (NEGATIVE) Urine Urobilinogen Normalmg/dL (NORMAL) Urine Leukocyte Esterase Negative (NEGATIVE) Urine RBC 0-2/hpf (0-2) Urine WBC 0-5/hpf (0-5) Urine Epithelial Cells None/hpf (NONE-MOD) Urine Crystals None seen (NONE SEEN) Urine Bacteria None/hpf (NONE-FEW) Urine Hyaline Casts None/lpf (NONE) Urine Granular Casts None seen (NONE SEEN) Urine Waxy Casts None seen (NONE SEEN) Urine Red Blood Cell Casts None seen (NONE SEEN) Urine White Blood Cell Casts None seen (NONE SEEN) Urine Mucus None seen (None Seen) Urine Trichomonas None seen (NONE SEEN) Urine Yeast None (NONE SEEN) Urinalysis Comment None Urine Culture Reflexed Not indicated White Blood Count 5.9th/mm3 (3.8-10.1) Red Blood Count 3.50mil/mm3 (4.40-5.80) Hemoglobin 10.7g/dL (13.8-17.2) Hematocrit 33.0% (41.0-50.0) Mean Corpuscular Volume 94.3fL (81-100) Mean Corpuscular Hemoglobin 30.6pg (27.0-35.0) Mean Corpuscular Hemoglobin Concent 32.4% (32.0-37.0) Red Cell Distribution Width 12.6% (12.3-15.4) Platelet Count 257bil/L (150-400) Neutrophils (%) (Auto) 53.4% (40-74) Lymphocytes (%) (Auto) 31.3% (14-46) Monocytes (%) (Auto) 12.3% (4-12) Eosinophils (%) (Auto) 1.7% (0-5) Basophils (%) (Auto) 1.0% (0-3) Sodium Level 141mEq/L (134-144) Potassium Level 3.9mEq/L (3.5-5.2) Chloride Level 107mEq/L (97-108) Carbon Dioxide Level 24mmol/L (18-29) Blood Urea Nitrogen 21mg/dL (8-27) Creatinine 0.92mg/dL (0.76-1.27) Estimat Glomerular Filtration Rate 87mL/min (>59) Glucose Level 86mg/dL (60-99) Calcium Level 8.1mg/dL (8.5-10.1) Total Bilirubin 0.5mg/dL (0.0-1.2) Aspartate Amino Transf (AST/SGOT) 13U/L (0-50) Alanine Aminotransferase (ALT/SGPT) 10U/L (0-44) Alkaline Phosphatase 58U/L (25-160) Troponin T 0.010ug/L (0.0-0.011) Total Protein 4.9g/dL (6.4-8.4) Albumin 3.4g/dL (3.4-5.0) Discharge Medications Discharge Medications Amoxicillin (Amoxicillin) 500 Mg Tablet 1,000 MG PO BID Prescribed by: MATILDA QUINTANILLA DO Clarithromycin (Clarithromycin) 500 Mg Tablet 500 MG PO BID Prescribed by: MATILDA QUINTANILLA DO Pantoprazole DR (Pantoprazole DR) 40 Mg Tablet.dr 40 MG PO BIDAC Take 40 mg twice daily for 14 days and then take 40 mg twice per day for 1 day per week for 4 weeks. Prescribed by: MATILDA QUINTANILLA DO Followup Plan Discharge Diet: Heart Healthy Discharge Activity: Limited until seen by PCP Patient Instructions For the stomach ulcers, please start a triple therapy. Take clarithromycin 500 mg twice per day for 10 days and amoxicillin 1000 mg twice per day for 10 days. Also, take pantoprazole 40 mg twice per day for 14 days. You will then continue pantoprazole 40 mg twice per day for 1 day per week for 4 more weeks. In summary, take pantoprazole twice per day for 2 weeks, and then one day per week for 4 additional weeks, which is a total of 6 weeks of pantoprazole. After 6 weeks, only take pantoprazole when you take non- steroidal anti-inflammatories, such as aspirin or ibuprofen. Do not take aspirin or ibuprofen during the first 6 weeks after leaving the hospital today. Limit your alcohol use. After you have completed 4 weeks of therapy, you will need an H. pylori breath test to confirm that the bacteria have successfully been treated. For your high blood pressure, limit your alcohol use and avoid prepackaged and high salt foods. You can also try [id number] magnesium supplements and/ or hibiscus tea. Follow-up with your primary care provider within one week. Follow-up Provider: [facility] Follow-up with PCP in: 1 week Attending Statement The patient was seen and examined together with Dr. Quintanilla on 04/09/2016 and I agree with the history, exam and plan as outlined in the note above. . copies to: [facility] Matilda Quintanilla DO Apr 09, 2016 18:28 Adria Hernandez MD Apr 11, 2016 09:53
== END 2016-04-09 18:34 | disposition home or self-care (01) ==
LOC: SED 12:32 → INTOOBSV 14:59 → PCC 14:59 → OBSVTOIN 14:59
PROVIDERS: ADMIT Specialist; ATTEND Specialist
DX: K92.2 Gastrointestinal hemorrhage, unspecified (principal); K25.9 Gastric ulcer, unspecified as acute or chronic, without hemorrhage or perforation; A04.8 Other specified bacterial intestinal infections; K26.9 Duodenal ulcer, unspecified as acute or chronic, without hemorrhage or perforation; I10 Essential (primary) hypertension; Z96.653 Presence of artificial knee joint, bilateral
CPT/HCPCS: 36415; 43239; 80053; 81000; 82272; 84484; 85014; 85018; 85025; 85610; 86850; 86922; 93005; 96374; 99291; 99292; G0378; J2250; J3010; J7030; J7120